=== PATIENT | female | born 1990 | race Two or more races ===

== ENCOUNTER 2020-08-28 01:04 | Emergency (ER) | payer OTHER, SELFPAY ==
--- NOTE | ~2020-08-28 | XR_ITS ---
EXAMINATION: CHEST 2 VIEWS CLINICAL INFORMATION: Palpitations. COMPARISON: 01/18/2018. TECHNIQUE: PA and lateral views of the chest were obtained. FINDINGS: The cardiac silhouette is not enlarged. The mediastinal and hilar contours are unremarkable. There are neither pleural effusions nor pneumothoraces. There are no consolidations. The osseous structures are stable. XR/XR chest 2V IMPRESSION: No evidence for acute disease.
--- NOTE | ~2020-08-28 | CT_ITS ---
EXAMINATION: CT PULMONARY EMBOLISM STUDY CLINICAL INFORMATION: Chest pain, dyspnea, elevated d-dimer. COMPARISON: Same day chest radiographs. TECHNIQUE: Contiguous helical images of the chest were obtained following the administration of IV contrast. Multiplanar reconstructions were performed. MIPS were obtained and reviewed. DLP: 563 mGy-cm. CONTRAST: 85 mL of Omnipaque 350 were administered without incident. FINDINGS: The heart is of normal size. There is no pericardial effusion. The great vessels are unremarkable. Specifically, there is no pulmonary arterial filling defect. There is no CT evidence for pulmonary embolism. There are no chest wall masses. Review of lung windows demonstrates that there are neither pleural effusions nor pneumothoraces. There are no consolidations. There are no pulmonary parenchymal nodules. Limited evaluation of the upper abdomen demonstrates that the liver is of normal size and attenuation without focal lesions. Normal adrenal glands are identified. CT/CT angio chest PE protocol IMPRESSION: No CT evidence for pulmonary embolism. Automated exposure control (Care Dose) Adjustment of the mA and/or kv according to patient size (this includes techniques or standardized protocols for targeted exams where dose is matched to indication / reason for exam; i.e. extremities or head).
[2020-08-28 01:10] VITALS: BP 144/76; PULSE 106; RESP 22; TEMP 37.1; O2SAT 99; BMI 38.9
--- NOTE | 2020-08-28 01:13 | ECG_ITS ---
Test Reason : PALPITATIONS Blood Pressure : / mmHG Vent. Rate : 100 BPM Atrial Rate : 100 BPM P-R Int : 142 ms QRS Dur : 098 ms QT Int : 340 ms P-R-T Axes : 047 027 037 degrees QTc Int : 438 ms Normal sinus rhythm Nonspecific ST and T wave abnormality Abnormal ECG When compared with ECG of 18-JAN-2018 13:24, No significant change was found Referred By: Crystal Cisneros Electronically Signed By:DENA LOAIZA
--- NOTE | 2020-08-28 01:14 | ED.ARRPALP ---
HPI - Arrhythmia/Palpitations General Chief Complaint: General Medical Stated Complaint: HEART PALPITATIONS Time Seen by Provider: 08/28/20 01:06 Source: patient Mode of arrival: ambulatory Limitations: no limitations History of Present Illness HPI narrative: 30 yo female no sig PMH did suffer from HTN in but resolved and not on medications - woke up [employer]NER and felt her HR racing no associated CP/SOB felt L arm was heavy - she denies any drug abuse, no recent issues, does take HerbaLife but has been on it for 2 weeks MD complaint: heart racing Onset (ago): minute(s) (just [employer]) Duration: constant (but improving) Severity: similar to previous episodes Context: occurred during rest Associated symptoms: feeling of impending doom Related Data Home Medications Medication Instructions Recorded Confirmed No Known Home Meds 08/28/20 08/28/20 Allergies Allergy/AdvReac Type Severity Reaction Status Date / Time No Known Allergies Allergy Verified 08/28/20 02:03 [No Known Allergies*] Review of Systems Review of Systems: Constitutional : No Weight loss, No Fever, No Chills, No Fatigue, No Malaise ENT/Mouth : No sore throat, No Rhinorrhea Eyes: No Eye Pain, No Swelling, No Redness Cardiovascular : No Chest Pain, No SOB, No Dyspnea on Exertion, No Orthopnea, No Edema, pos Palpitations Respiratory : No Cough, No Sputum, No Wheezing Gastrointestinal : No Nausea, No Vomiting, No Diarrhea, No Constipation, No abdominal Pain, No Hematochezia, No Melena Genitourinary : No Dysuria, No Urinary Frequency, No Hematuria, Musculoskeletal : No joint pain, No Myalgias, No Joint Swelling Skin : No Skin Lesions, No rash Neuro : No Weakness, No Numbness, No Dizziness, No Headache Psych : pos Anxiety/Panic, No Depression Heme/Lymph: No Bruising, No Bleeding,No Lymphadenopathy Endocrine : No Polyuria, No Polydipsia All other systems reviewed and are negative PMFSH Past Medical History Attestation statement: The following information was validated with the patient. Medical History HTN in , chronic Social History Social History (Updated 08/28/20 @ 01:20 by Crystal Cisneros DO) Alcohol intake: current Alcohol intake frequency: holidays/special occasions only Smoking Status: Never smoker Use of substances other than those prescribed or required for medical reasons: No Advance Directives: No Advance Directives Information Provided: No Physical Exam Vital Signs: Vital Signs: Last Vital Signs Temp 98.8 F 08/28/20 01:10 Pulse 100 08/28/20 01:58 Resp 22 H 08/28/20 01:10 BP 144/76 H 08/28/20 01:10 Pulse Ox 99 08/28/20 01:10 Body Mass Index 38.9 Appearance: Alert. Oriented X3. No acute distress. Anxious Eyes: Pupils equal, round and reactive to light. ENT: Pharynx normal. Neck: Normal inspection. Neck supple. CVS: Normal heart rate and rhythm. Pulses normal. Respiratory: No respiratory distress. Breath sounds normal. Abdomen: Soft and nontender. Skin: Skin warm and dry. Normal skin color. Normal skin turgor. Extremities: No lower extremity edema. No calf ttp Neuro: Oriented X 3. No motor deficit. No sensory deficit. Course Course Course Narrative: ddimer over upper limits of normal - CTA: PE ordered patient refusing CTA at this time does not want contrast has no CP/SOB explained risks she declines. negative workup stable for DC MDM - Arrhythmia/Palpitations MDM Narrative Medical decision making narrative: 30 yo female with hx of gestational HTN here with palpitations no CP/SOB at this time very anxious will need labs, EKG, ddimer/troponin, IV ativan for anxiety, takes herbalife but has been on it for two weeks, has had these episodes in the past but usually resolves with deep breathing, dispo per results and findings - doubt ACS/PE Lab Data Result diagrams: 08/28/20 01:27 08/28/20 01:27 Labs: Lab Results 08/28/20 08/28/20 08/28/20 Range/Units 01:27 01:27 01:27 WBC 10.7 (4.8-10.8) X10*3/uL RBC 4.96 (4.20-5.50) X10*6/uL Hgb 11.5 L (12.0-16.0) g/dl Hct 36.3 L (37-47) % MCV 73.2 L (80-98) fL MCH 23.2 L (27.0-33.0) pg MCHC 31.7 (31.0-35.0) g/dl RDW 16.2 H (11.0-16.0) % Plt Count 323 (160-400) X10*3/uL MPV 9.4 (9.4-12.3) fL Immature Gran % (Auto) 0.2 (0.0-0.4) % Neut % (Auto) 69.1 (45-73) % Lymph % (Auto) 23.4 (20-40) % [place] % (Auto) 5.1 (2-11) % Eos % (Auto) 1.9 (0-4) % Baso % (Auto) 0.3 (0-2) % Lymph # (Auto) 2.5 (1.2-4.9) X10*3/uL [place] # (Auto) 0.5 (0.1-1.2) X10*3/uL Eos # (Auto) 0.2 (0.0-0.4) X10*3/uL Baso # (Auto) 0.0 (0.0-0.2) X10*3/uL Abs Immat Gran (auto) 0.02 (0.00-0.03) X10*3/uL Absolute Neuts (auto) 7.4 (2.0-8.3) X10*3/uL Absolute Nucleated RBC 0.000 (0.0-0.012) X10*3/uL Nucleated RBC % (auto) 0.0 (0.0-0.2) /100WBC D-Dimer 288 NG/ML Sodium 136 (135-145) mmol/L Potassium 3.2 L (3.3-5.1) mmol/L Chloride 104 (96-108) mmol/L Carbon Dioxide 24 (22-29) mmol/L Anion Gap 11 L (12-20) BUN 11 (9-16) mg/dL Creatinine 0.62 (0.5-1.4) mg/dL Estim Creat Clear Calc 186.8 Estimated GFR > 60 Random Glucose 123 H (60-115) mg/dL Calcium 8.6 (8.4-10.2) mg/dL Magnesium 1.8 (1.6-2.6) mg/dL Total Bilirubin 0.4 (0.0-1.0) mg/dL Direct Bilirubin 0.2 (0.0-0.5) mg/dL AST 14 (5-31) U/L ALT 33 H (0-31) U/L Alkaline Phosphatase 86 (39-117) U/L Troponin I High Sens (<3.5-17.0) ng/L B-Natriuretic Peptide (<100) pg/mL Total Protein 7.2 (6.5-8.0) g/dL Albumin 4.1 (3.5-5.0) g/dL TSH 3.79 (0.32-4.0) uIU/mL Beta HCG, Quant < 2 mIU/mL 08/28/20 Range/Units 01:27 WBC (4.8-10.8) X10*3/uL RBC (4.20-5.50) X10*6/uL Hgb (12.0-16.0) g/dl Hct (37-47) % MCV (80-98) fL MCH (27.0-33.0) pg MCHC (31.0-35.0) g/dl RDW (11.0-16.0) % Plt Count (160-400) X10*3/uL MPV (9.4-12.3) fL Immature Gran % (Auto) (0.0-0.4) % Neut % (Auto) (45-73) % Lymph % (Auto) (20-40) % [place] % (Auto) (2-11) % Eos % (Auto) (0-4) % Baso % (Auto) (0-2) % Lymph # (Auto) (1.2-4.9) X10*3/uL [place] # (Auto) (0.1-1.2) X10*3/uL Eos # (Auto) (0.0-0.4) X10*3/uL Baso # (Auto) (0.0-0.2) X10*3/uL Abs Immat Gran (auto) (0.00-0.03) X10*3/uL Absolute Neuts (auto) (2.0-8.3) X10*3/uL Absolute Nucleated RBC (0.0-0.012) X10*3/uL Nucleated RBC % (auto) (0.0-0.2) /100WBC D-Dimer NG/ML Sodium (135-145) mmol/L Potassium (3.3-5.1) mmol/L Chloride (96-108) mmol/L Carbon Dioxide (22-29) mmol/L Anion Gap (12-20) BUN (9-16) mg/dL Creatinine (0.5-1.4) mg/dL Estim Creat Clear Calc Estimated GFR Random Glucose (60-115) mg/dL Calcium (8.4-10.2) mg/dL Magnesium (1.6-2.6) mg/dL Total Bilirubin (0.0-1.0) mg/dL Direct Bilirubin (0.0-0.5) mg/dL AST (5-31) U/L ALT (0-31) U/L Alkaline Phosphatase (39-117) U/L Troponin I High Sens < 3.5 (<3.5-17.0) ng/L B-Natriuretic Peptide < 10 (<100) pg/mL Total Protein (6.5-8.0) g/dL Albumin (3.5-5.0) g/dL TSH (0.32-4.0) uIU/mL Beta HCG, Quant mIU/mL ECG Data Attestation: I personally reviewed and interpreted this ECG as follows: ECG interpretation date: 08/28/20 ECG interpretation time: 01:55 Interpretation: Rate: 100 Rhythm: NSR [place]: normal Normal P waves. Normal EBER. Normal QRS complex. ST T wave : nonspecific, no RADAMES qTC: normal prior studies: no acute ischemia The study has been interpreted contemporaneously by me. EKG #2 Rate: 99 Rhythm: NSR [place]: normal Normal P waves. Normal EBER. Normal QRS complex. ST T wave : normal, no RADAMES qTC: normal prior studies: no acute ischemia The study has been interpreted contemporaneously by me. . Discharge Plan Discharge Clinical Impression: Heart palpitations, Acute hypokalemia Patient Disposition: Home, Self-Care Instructions: Heart Palpitations (ED), Hypokalemia (ED) Additional Instructions: return to ED for any worsening symptoms or concerns Prescriptions: No Action No Known Home Meds RF: 0 Stand Alone Forms: Work/School Release Print Language: Frisian
[2020-08-28 01:35] LABS: MANUAL DIFF FLAG NO
[2020-08-28 01:38] LABS: Basophils Percent Auto 0.3 % (0-2); Eosinophils Absolute Auto 0.2 X10*3/uL (0.0-0.4); Eosinophils Percent Auto 1.9 % (0-4); Hematocrit 36.3 % (37-47); Hemoglobin 11.5 g/dl (12.0-16.0); Imm Gran Abs Auto 0.02 X10*3/uL (0.00-0.03); Imm Gran Pct Auto 0.2 % (0.0-0.4); Lymphocytes Absolute Auto 2.5 X10*3/uL (1.2-4.9); Lymphocytes Percent Auto 23.4 % (20-40); Mean Corpuscular HGB Conc 31.7 g/dl (31.0-35.0); Mean Corpuscular Hemoglobin 23.2 pg (27.0-33.0); Mean Corpuscular Volume 73.2 fL (80-98); Mean Platelet Volume 9.4 fL (9.4-12.3); Monocytes Absolute Auto 0.5 X10*3/uL (0.1-1.2); Monocytes Percent Auto 5.1 % (2-11); Neutrophils Absolute Auto 7.4 X10*3/uL (2.0-8.3); Neutrophils Percent Auto 69.1 % (45-73); Platelet Count 323 X10*3/uL (160-400); Red Blood Count 4.96 X10*6/uL (4.20-5.50); Red Cell Distribution Width 16.2 % (11.0-16.0); White Blood Count 10.7 X10*3/uL (4.8-10.8)
[2020-08-28] MEDS: LORazepam 2 MG/ML VIAL 0.5 MG IVPUSH (01:39)
[2020-08-28 01:58] VITALS: PULSE 100
[2020-08-28 02:03] LABS: Alanine Aminotransferase 33 U/L (0-31); Albumin Level 4.1 g/dL (3.5-5.0); Alkaline Phosphatase 86 U/L (39-117); Anion Gap 11 (12-20); Aspartate Amino Transferase 14 U/L (5-31); Bilirubin Direct 0.2 mg/dL (0.0-0.5); Bilirubin Total 0.4 mg/dL (0.0-1.0); Blood Urea Nitrogen 11 mg/dL (9-16); Calcium 8.6 mg/dL (8.4-10.2); Carbon Dioxide 24 mmol/L (22-29); Chloride 104 mmol/L (96-108); Creatinine Clr Calc Pharmacy 186.8; Estimated Glomerular Filt Rate > 60; Glucose Random 123 mg/dL (60-115); Magnesium 1.8 mg/dL (1.6-2.6); Potassium 3.2 mmol/L (3.3-5.1); Sodium 136 mmol/L (135-145); Total Protein 7.2 g/dL (6.5-8.0)
[2020-08-28 02:09] LABS: B Type Natriuretic Peptide < 10 pg/mL (<100); Troponin-I High Sensitivity < 3.5 ng/L (<3.5-17.0)
[2020-08-28 02:10] LABS: D Dimer 288 NG/ML
[2020-08-28 02:24] LABS: Thyroid Stimulating Hormone 3.79 uIU/mL (0.32-4.0)
--- NOTE | 2020-08-28 02:26 | PC.NURSE ---
PATIENT AWAY FOR CT SCAN TO RULE OUT PE. PT AMBULATES WITH STEADY GAIT. WILL MEDICATE WITH PO POTASSIUM UPON RETURN TO ED BED 6. PT REPORTS THAT ATIVAN IS EFFECTIVE, AND IS IN NORMAL SINUS RHYTHM ON THE MONITOR.
--- NOTE | 2020-08-28 02:42 | ECG_ITS ---
Test Reason : REPEAT EKG Blood Pressure : / mmHG Vent. Rate : 099 BPM Atrial Rate : 099 BPM P-R Int : 136 ms QRS Dur : 100 ms QT Int : 342 ms P-R-T Axes : 039 027 025 degrees QTc Int : 438 ms Normal sinus rhythm Normal ECG When compared with ECG of 28-AUG-2020 01:51, No significant changes seen Referred By: Crystal Cisneros Electronically Signed By:DENA LOAIZA
[2020-08-28 03:00] LABS: HCG Quantitative < 2 mIU/mL
--- NOTE | 2020-08-28 03:06 | PC.NURSE ---
PT INITIALLY REFUSED CTA BEING OBTAINED. EXPLAINED REASON FOR CTA OF CHEST, AND IMPORTANCE, WELL THE PROCESS OF OBTAINING CTA ITSELF. PATIENT CONSENTED TO CTA WITH PRESIDENT AND CHIEF COMMERCIAL OFFICER AT BEDSIDE. REPEAT EKG OBTAINED PER 'S ORDERS. PREVIOUS 18G IV ACCESS INFILTRATED, NEW 18G IV ACCESS INSERTED TO RIGHT AC BY THIS RN WHILE IN RADIOLOGY. NEW IV ACCESS PATENT/INTACT/FUNCTIONAL. PT HAD BRIEF MOMENT OF NAUSEA AT THE END OF CTA, BUT OTHERWISE TOLERATED PROCEDURE WELL.
[2020-08-28] MEDS: iohexoL 350 MG/ML 100 ML INFUS..BTL 85 ML IV (03:13)
[2020-08-28] MEDS: Potassium Chloride ER 20 MEQ TAB.ER.PRT 40 MEQ PO (03:14)
[2020-08-28 03:42] VITALS: BP 127/74; PULSE 89; RESP 18; O2SAT 100
== END 2020-08-28 04:00 | disposition home or self-care (01) ==
PROVIDERS: Emergency Provider Emergency Medicine
DX: R00.2 Palpitations (principal); E87.6 Hypokalemia
CPT/HCPCS: 36415; 71046; 71275; 80048; 80076; 83735; 83880; 84443; 84484; 84702; 85025; 85379; 93005; 96374; 99284; J2060; Q9967

== ENCOUNTER 2020-09-16 17:21 | Emergency (ER) | payer OTHER, SELFPAY | END 2020-09-16 18:08 | disposition left against medical advice (07) | PROVIDERS: Emergency Provider Emergency Medicine | DX: R51.9 Headache, unspecified (principal); I10 Essential (primary) hypertension ==

== ENCOUNTER 2020-09-23 14:58 | Emergency (ER) | payer OTHER, SELFPAY ==
[2020-09-23 15:01] VITALS: BP 134/66; PULSE 83; RESP 18; TEMP 36.7; O2SAT 99; BMI 38.9
--- NOTE | 2020-09-23 19:29 | ED.GENADULT ---
HPI - General Adult General Chief complaint: General Medical Stated complaint: rapid heartrate Time Seen by Provider: 09/23/20 19:29 Source: patient Mode of arrival: ambulatory Limitations: no limitations History of Present Illness HPI narrative: Patient history of anxiety been here earlier last month for similar situation with poor sleep and palpitation with anxiety workup was negative today she comes for similar symptoms since yesterday evening patient unable to sleep and wakes up with palpitation and anxiety. Patient has not seen any psychiatrist or therapist. Patient denies any depression significant stress at home patient works 6 days a week Related Data Previous Rx's Medication Instructions Recorded lorazepam [Ativan] 0.5 mg PO BEDTIME PRN #20 tab 09/23/20 Allergies Allergy/AdvReac Type Severity Reaction Status Date / Time No Known Allergies Allergy Verified 08/28/20 02:03 [No Known Allergies*] Review of Systems Review of Systems: Constitutional : No Weight loss, No Fever, No Chills ENT/Mouth : No sore throat, No Rhinorrhea Eyes: No Eye Pain, No Swelling Cardiovascular : No Chest Pain, + palpitations Respiratory : No Cough, No Sputum, no shortness of breath Gastrointestinal : no Nausea, No Vomiting, No Diarrhea, No abdominal Pain, no black stools Genitourinary : No Dysuria, No Urinary Frequency Musculoskeletal : No joint pain, No Myalgias, No Joint Swelling Skin : No Skin Lesions, No rash Neuro : No Weakness, No Numbness, No Dizziness, No Headache Psych : No Anxiety/Panic, No Depression Heme/Lymph: No Bruising, No Lymphadenopathy Endocrine : No Polyuria, No Polydipsia All other systems reviewed and are negative PMFSH Past Medical History Medical History HTN in , chronic Social History Social History Alcohol intake: current Alcohol intake frequency: holidays/special occasions only Smoking Status: Never smoker Advance Directives: No Advance Directives Information Provided: Yes Physical Exam Vital Signs: Vital Signs: Last Vital Signs Temp 98.1 F 09/23/20 15:01 Pulse 83 09/23/20 15:01 Resp 18 09/23/20 15:01 BP 134/66 09/23/20 15:01 Pulse Ox 99 09/23/20 15:01 Body Mass Index 38.9 Appearance: Alert. Oriented X3. No acute distress. Anxious Eyes: Pupils equal, round and reactive to light. ENT: Pharynx normal. Neck: Normal inspection. Neck supple. CVS: Normal heart rate and rhythm. Pulses normal. Respiratory: No respiratory distress. Breath sounds normal. Abdomen: Soft and nontender. Bowel sounds are present, no mass palpable, no CVA tenderness Skin: Skin warm and dry. Normal skin color. Normal skin turgor. Extremities: No lower extremity edema. Neuro: Oriented X 3. No motor deficit. No sensory deficit. Medical Decision Making MDM Narrative Medical decision making narrative: Patient with symptoms of anxiety heart rate in 70s saturating 100% clinically patient seems anxious. Will discharge patient home on Ativan and advised to follow with therapist and is Discharge Plan Discharge Clinical Impression: Anxiety Patient Disposition: Home, Self-Care Instructions: Anxiety (ED) Additional Instructions: Relax at home. Take Ativan 0.5 mg every night as needed for severe anxiety. Follow-up with your PCP Prescriptions: New lorazepam [Ativan] 0.5 mg tablet 0.5 mg PO BEDTIME PRN (Reason: anxiety) Qty: 20 RF: 0 Stand Alone Forms: Work/School Release
[2020-09-23] MEDS: LORazepam 0.5 MG TABLET PO (20:00)
== END 2020-09-23 20:04 | disposition home or self-care (01) ==
PROVIDERS: Emergency Provider Internal Medicine
DX: F41.9 Anxiety disorder, unspecified (principal)
CPT/HCPCS: 99283

== ENCOUNTER 2020-10-08 16:15 | Outpatient (REF) | payer OTHER, SELFPAY ==
[2020-10-08 16:43] LABS: MANUAL DIFF FLAG NO
[2020-10-08 16:53] LABS: Basophils Percent Auto 0.3 % (0-2); Eosinophils Absolute Auto 0.1 X10*3/uL (0.0-0.4); Eosinophils Percent Auto 1.3 % (0-4); Hematocrit 38.8 % (37-47); Hemoglobin 11.9 g/dl (12.0-16.0); Imm Gran Abs Auto 0.03 X10*3/uL (0.00-0.03); Imm Gran Pct Auto 0.3 % (0.0-0.4); Lymphocytes Absolute Auto 2.1 X10*3/uL (1.2-4.9); Mean Corpuscular HGB Conc 30.7 g/dl (31.0-35.0); Mean Corpuscular Hemoglobin 22.9 pg (27.0-33.0); Mean Corpuscular Volume 74.8 fL (80-98); Mean Platelet Volume 9.4 fL (9.4-12.3); Monocytes Absolute Auto 0.5 X10*3/uL (0.1-1.2); Monocytes Percent Auto 4.9 % (2-11); Neutrophils Absolute Auto 7.9 X10*3/uL (2.0-8.3); Neutrophils Percent Auto 73.2 % (45-73); Platelet Count 342 X10*3/uL (160-400); Red Blood Count 5.19 X10*6/uL (4.20-5.50); Red Cell Distribution Width 15.7 % (11.0-16.0); White Blood Count 10.7 X10*3/uL (4.8-10.8)
[2020-10-08 17:30] LABS: Alanine Aminotransferase 16 U/L (0-31); Albumin Level 4.5 g/dL (3.5-5.0); Alkaline Phosphatase 93 U/L (39-117); Anion Gap 15 (12-20); Aspartate Amino Transferase 15 U/L (5-31); Bilirubin Total 0.7 mg/dL (0.0-1.0); Blood Urea Nitrogen 14 mg/dL (9-16); Calcium 9.4 mg/dL (8.4-10.2); Carbon Dioxide 23 mmol/L (22-29); Chloride 104 mmol/L (96-108); Estimated Glomerular Filt Rate > 60; Glucose Random 79 mg/dL (60-115); Iron 21 mcg/dL (30-160); Percent Iron Saturation 6 % (15-50); Potassium 4.3 mmol/L (3.3-5.1); Sodium 138 mmol/L (135-145); Total Iron Binding Capacity 326 mcg/dL (228-428); Total Protein 7.9 g/dL (6.5-8.0); Unsaturated Iron Binding 305 ug/dL
[2020-10-08 17:53] LABS: Thyroid Stimulating Hormone 0.79 uIU/mL (0.32-4.0)
[2020-10-09 08:11] LABS: Estimated Average Glucose 97 mg/dL
== END 2020-10-08 16:16 | disposition home or self-care (01) ==
LOC: HO.LAB 16:15
PROVIDERS: PCP Internal Medicine; Visit Provider Internal Medicine
DX: I27.20 Pulmonary hypertension, unspecified (principal); R73.03 Prediabetes
CPT/HCPCS: 36415; 80053; 83036; 83540; 84439; 84443; 85025

== ENCOUNTER 2024-03-10 20:33 | Emergency (ER) | payer OTHER, SELFPAY ==
--- NOTE | 2024-03-10 | ECG_ITS ---
Test Reason : DIZZINESS Blood Pressure : / mmHG Vent. Rate : 097 BPM Atrial Rate : 097 BPM P-R Int : 150 ms QRS Dur : 096 ms QT Int : 344 ms P-R-T Axes : 032 023 015 degrees QTc Int : 436 ms Normal sinus rhythm Normal ECG When compared with ECG of 28-AUG-2020 02:42, No significant change was found Referred By: Generic ED Physician Electronically Signed By:SMITA HERNANDEZ
[2024-03-10 20:49] VITALS: BP 128/75; BMI 45.7
[2024-03-10 20:53] VITALS: BP 123/63; BP 126/66; PULSE 90; PULSE 96
[2024-03-10 20:54] VITALS: BP 128/74; PULSE 100
[2024-03-10 20:55] VITALS: BP 123/63; PULSE 96; RESP 18; TEMP 36.9; O2SAT 100
[2024-03-10 21:25] LABS: MANUAL DIFF FLAG NO
[2024-03-10 21:30] LABS: Basophils Percent Auto 0.3 % (0-2); Eosinophils Absolute Auto 0.1 X10*3/uL (0.0-0.4); Eosinophils Percent Auto 1.4 % (0-4); Hemoglobin 12.3 g/dl (12.0-16.0); Imm Gran Abs Auto 0.02 X10*3/uL (0.00-0.03); Imm Gran Pct Auto 0.2 % (0.0-0.4); Lymphocytes Absolute Auto 1.7 X10*3/uL (1.2-4.9); Mean Corpuscular HGB Conc 32.4 g/dl (31.0-35.0); Mean Corpuscular Hemoglobin 25.3 pg (27.0-33.0); Mean Platelet Volume 9.1 fL (9.4-12.3); Monocytes Absolute Auto 0.6 X10*3/uL (0.1-1.2); Monocytes Percent Auto 5.8 % (2-11); Neutrophils Absolute Auto 7.4 x10*3/uL (2.0-8.3); Neutrophils Percent Auto 75.3 % (45-73); Platelet Count 311 X10*3/uL (160-400); Red Blood Count 4.87 X10*6/uL (4.20-5.50); Red Cell Distribution Width 14.9 % (11.0-16.0); White Blood Count 9.9 X10*3/uL (4.8-10.8)
--- NOTE | 2024-03-10 21:41 | ED_ITS ---
HPI - Dizziness General Chief Complaint: Dizziness Stated Complaint: dizziness intermittent x 2 days, headache Time Seen by Provider: 03/10/24 21:41 Source: patient Mode of arrival: EMS Limitations: no limitations History of Present Illness ED Provider: isabela CHAPPELL Narrative: Patient is 34 years old obese with history of migraine headache off and on been working hard all day today moving his her stuff around 18:00 noticed lightheaded and dizzy sat down got better history of same in the past also patient complaining of headache no fever no chills no upper respiratory symptoms Related Data Previous Rx's ?Medication ?Instructions ?Recorded lorazepam 0.5 mg tablet (Ativan) 0.5 mg PO BEDTIME PRN anxiety #20 09/23/20 tabs Allergies Allergy/AdvReac Type Severity Reaction Status Date / Time No Known Allergies Allergy Verified 03/10/24 20:53 [No Known Allergies*] Review of Systems 2 Review of Systems: Yes all other systems are reviewed and are negative PMFSH Past Medical History Medical History HTN in , chronic Social History Social History Alcohol intake: current Alcohol intake frequency: holidays/special occasions only Smoked in Last 30 Days: No Advance Directives: No Advance Directives Information Provided: No Do you have a plan to hurt others: No Plan Physical Exam 2 Vital Signs: Vital Signs: Last Vital Signs Temp 98.4 F 03/10/24 20:55 Pulse 96 03/10/24 20:55 Resp 18 03/10/24 20:55 BP 123/63 03/10/24 20:55 Pulse Ox 100 03/10/24 20:55 O2 Del Method Room Air 03/10/24 20:55 BMI result Body Mass Index 45.7 Appearance: Alert. Oriented X3. No acute distress. Eyes: PERRLA, No Nystagmus ENT: Pharynx normal. Oral Mucosa moist no temporal artery tenderness Neck: Normal inspection. Neck supple. CVS: Normal heart rate and rhythm. Pulses normal. Respiratory: No respiratory distress. Equal air entry bilateral, no wheezing/rales/rhonchi Abdomen: Soft and nontender. Bowel sounds are present, no mass palpable, no CVA tenderness Skin: Skin warm and dry. Normal skin color. Normal skin turgor. Extremities: No lower extremity edema. No calf tenderness Neuro: Oriented X 3. No motor deficit. No sensory deficit.No cerebellar signs , cranial nerves II-XII intact Medications Administered Discontinued Medications Generic Name Dose Route Start Last Admin Trade Name Alcon PRN Reason Stop Dose Admin Acetaminophen/Butalbital/Caffeine 1 tab 03/10/24 21:54 03/10/24 22:10 Butalb/Acetamin/Caff 50/325/40 Tablet PO 03/10/24 21:55 1 tab ONCE ONE Administration Al Hydroxide/Mg Hydroxide 30 ml 03/10/24 21:55 03/10/24 22:10 Magnesium Hydrox/Alum Hydrox 30 Ml Oral.Susp PO 03/10/24 21:56 30 ml ONCE ONE Administration Omeprazole 40 mg 03/10/24 21:55 03/10/24 22:10 Omeprazole 40 Mg Capsule. PO 03/10/24 21:56 40 mg ONCE ONE Administration Medical Decision Making Medical Decision Making [facility] Narrative: Patient likely with vasovagal near-syncope orthostatics normal the cells workup is also normal will discharge patient advised to drink plenty fluids give Fioricet for headaches Differential Diagnosis Differential Diagnoses: The differential diagnosis associated with the presentation includes Migraine headache, vasovagal near-syncope, benign positional vertigo Lab Data [facility] Lab Attestation statement: I reviewed the patient's lab results. 03/10/24 21:21 03/10/24 21:21 Labs: Lab Results 03/10/24 Range/Units 21:21 WBC 9.9 (4.8-10.8) X10*3/uL RBC 4.87 (4.20-5.50) X10*6/uL Hgb 12.3 (12.0-16.0) g/dl Hct 38.0 (37.0-47.0) % MCV 78.0 L (80.0-98.0) fL MCH 25.3 L (27.0-33.0) pg MCHC 32.4 (31.0-35.0) g/dl RDW 14.9 (11.0-16.0) % Plt Count 311 (160-400) X10*3/uL MPV 9.1 L (9.4-12.3) fL Immature Gran % (Auto) 0.2 (0.0-0.4) % Neut % (Auto) 75.3 H (45-73) % Lymph % (Auto) 17.0 L (20-40) % [place] % (Auto) 5.8 (2-11) % Eos % (Auto) 1.4 (0-4) % Baso % (Auto) 0.3 (0-2) % Lymph # (Auto) 1.7 (1.2-4.9) X10*3/uL [place] # (Auto) 0.6 (0.1-1.2) X10*3/uL Eos # (Auto) 0.1 (0.0-0.4) X10*3/uL Baso # (Auto) 0.0 (0.0-0.2) X10*3/uL Abs Immat Gran (auto) 0.02 (0.00-0.03) X10*3/uL Absolute Neuts (auto) 7.4 (2.0-8.3) x10*3/uL Absolute Nucleated RBC 0.000 (0.0-0.012) X10*3/uL Nucleated RBC % (auto) 0.0 (0.0-0.2) /100WBC Sodium 139 (135-145) mmol/L Potassium 3.8 (3.3-5.1) mmol/L Chloride 104 (96-108) mmol/L Carbon Dioxide 29 (22-29) mmol/L Anion Gap 10 L (12-20) BUN 9 (9-16) mg/dL Creatinine 0.70 (0.5-1.4) mg/dL Estim Creat Clear Calc 169.1 Estimated GFR > 60 Random Glucose 139 H (60-115) mg/dL Calcium 9.3 (8.4-10.2) mg/dL Magnesium 1.9 (1.6-2.6) mg/dL Total Bilirubin 0.2 (0.0-1.0) mg/dL AST 13 (5-31) U/L ALT 16 (0-31) U/L Alkaline Phosphatase 93 (39-117) U/L Troponin I High Sens < 2.7 (<3.5-17.0) ng/L Total Protein 7.5 (6.5-8.0) g/dL Albumin 4.0 (3.5-5.0) g/dL Influenza Type A (PCR) NEGATIVE (Negative) Influenza Type B (PCR) NEGATIVE (Negative) RSV RNA Qual (PCR) NEGATIVE (Negative) SARS-CoV-2 RNA (RT-PCR) NEGATIVE (Negative) Independent Interpretation I performed an independent interpretation of an: EKG Interpretation: Normal sinus rhythm heart rate 97 beats per minute normal interval normal axis impression normal EKG Discharge Plan Discharge Clinical Impression: Vasovagal near syncope, Headache, migraine Prescriptions: No Action lorazepam [Ativan] 0.5 mg tablet 0.5 mg PO BEDTIME PRN (Reason: anxiety) Qty: 20 0RF Print Language: Occitan
[2024-03-10 21:43] LABS: Alanine Aminotransferase 16 U/L (0-31); Alkaline Phosphatase 93 U/L (39-117); Anion Gap 10 (12-20); Aspartate Amino Transferase 13 U/L (5-31); Bilirubin Total 0.2 mg/dL (0.0-1.0); Blood Urea Nitrogen 9 mg/dL (9-16); Calcium 9.3 mg/dL (8.4-10.2); Carbon Dioxide 29 mmol/L (22-29); Chloride 104 mmol/L (96-108); Creatinine Clr Calc Pharmacy 169.1; Estimated Glomerular Filt Rate > 60; Glucose Random 139 mg/dL (60-115); Magnesium 1.9 mg/dL (1.6-2.6); Potassium 3.8 mmol/L (3.3-5.1); Sodium 139 mmol/L (135-145); Total Protein 7.5 g/dL (6.5-8.0)
[2024-03-10 21:51] LABS: Troponin-I High Sensitivity < 2.7 ng/L (<3.5-17.0)
[2024-03-10 22:08] LABS: Influenza A PCR NEGATIVE (Negative); Influenza B PCR NEGATIVE (Negative); Resp Syncy Virus RNA Qual PCR NEGATIVE (Negative); SARS COV2 PCR INHOUSE NEGATIVE (Negative)
[2024-03-10] MEDS: Butalb/Acetamin/Caff 50/325/40 TABLET 1 TAB PO (22:10)
[2024-03-10] MEDS: Omeprazole 40 MG CAPSULE.DR PO (22:10)
[2024-03-10] MEDS: Magnesium Hydrox/Alum Hydrox 30 ML ORAL.SUSP PO (22:10)
[2024-03-10 22:42] VITALS: BP 112/57; PULSE 84; RESP 20; TEMP 37.4; O2SAT 98
[2024-03-10 23:10] VITALS: BP 112/57; PULSE 84; RESP 20; TEMP 37.4; O2SAT 98
== END 2024-03-10 23:11 | disposition home or self-care (01) ==
PROVIDERS: Emergency Provider Internal Medicine
DX: R55 Syncope and collapse (principal); G43.909 Migraine, unspecified, not intractable, without status migrainosus; Z03.818 Encounter for observation for suspected exposure to other biological agents ruled out
CPT/HCPCS: 0241U; 36415; 80053; 83735; 84484; 85025; 93005; 99283; 99284

== ENCOUNTER 2024-04-12 08:12 | Outpatient (REF) | payer OTHER, SELFPAY ==
[2024-04-12 08:36] LABS: MANUAL DIFF FLAG NO
[2024-04-12 09:32] LABS: Basophils Percent Auto 0.3 % (0-2); Eosinophils Absolute Auto 0.2 X10*3/uL (0.0-0.4); Eosinophils Percent Auto 1.9 % (0-4); Hemoglobin 12.4 g/dl (12.0-16.0); Imm Gran Abs Auto 0.05 X10*3/uL (0.00-0.03); Imm Gran Pct Auto 0.5 % (0.0-0.4); Lymphocytes Absolute Auto 2.5 X10*3/uL (1.2-4.9); Lymphocytes Percent Auto 23.7 % (20-40); Mean Corpuscular HGB Conc 31.8 g/dl (31.0-35.0); Mean Corpuscular Hemoglobin 24.7 pg (27.0-33.0); Mean Corpuscular Volume 77.5 fL (80.0-98.0); Monocytes Absolute Auto 0.7 X10*3/uL (0.1-1.2); Monocytes Percent Auto 6.3 % (2-11); Neutrophils Percent Auto 67.3 % (45-73); Platelet Count 310 X10*3/uL (160-400); Red Blood Count 5.03 X10*6/uL (4.20-5.50); Red Cell Distribution Width 14.9 % (11.0-16.0); White Blood Count 10.4 X10*3/uL (4.8-10.8)
[2024-04-12 10:02] LABS: Alanine Aminotransferase 25 U/L (0-31); Alkaline Phosphatase 83 U/L (39-117); Anion Gap 11 (12-20); Aspartate Amino Transferase 16 U/L (5-31); Bilirubin Total 0.5 mg/dL (0.0-1.0); Blood Urea Nitrogen 10 mg/dL (9-16); Calcium 9.5 mg/dL (8.4-10.2); Carbon Dioxide 29 mmol/L (22-29); Chloride 103 mmol/L (96-108); Cholesterol 171 mg/dL (<200); Estimated Glomerular Filt Rate > 60; Glucose Random 120 mg/dL (60-115); Sodium 139 mmol/L (135-145); Total Protein 7.7 g/dL (6.5-8.0)
[2024-04-12 10:21] LABS: Free T4 (Free Thyroxine) 1.06 ng/dL (0.71-1.85); Thyroid Stimulating Hormone 1.65 uIU/mL (0.32-4.0)
== END 2024-04-12 08:13 | disposition home or self-care (01) ==
LOC: HO.LAB 08:12
PROVIDERS: PCP Internal Medicine; Visit Provider Internal Medicine
DX: R53.83 Other fatigue (principal); E66.01 Morbid (severe) obesity due to excess calories
CPT/HCPCS: 36415; 80053; 82465; 84439; 84443; 85025

== ENCOUNTER → 2024-05-18 08:58 | Outpatient (REF) | payer OTHER, SELFPAY | LOC: HO.SL 08:58 | PROVIDERS: PCP Internal Medicine; Visit Provider Internal Medicine | DX: Z13.89 Encounter for screening for other disorder (principal) ==

== ENCOUNTER 2024-06-27 10:56 | Outpatient (REF) | payer OTHER, SELFPAY ==
--- OUTSIDE RECORDS SUMMARY | 2024-06-28 21:03 | XMS_ITS | Continuity of Care Document ---
Author Organization [facility] Address [address] [place] [address] Phone Care Team Providers Care Radiographer Cardiac Catheterization Name Role Phone Saumya Irving MD Unavailable [...] Diagnoses Date Provider Providers [facility]ied on [facility] [address], [place], [id number] , [place] tel:[phone] [facility] No Information Kalee Kerns. [address] [place], [place], [id number]. tel:[phone] ESTABLISHED PT- MINIMUM EXAM [facility] n, [address], [place], [id number] , [place] tel:[phone] [facility] requesting plan B (chief complaint) Encounter for emergency contraceptive counseling and prescriptionScre en for STD (sexually transmitted disease) 5 No Information [facility], [address], [place], [id number] , [place] tel:[phone] [facility] No Information 2 [employer]. [address] [place], [place], [id number]. [facility], [address], [place], [id number] , [place] tel:[phone] [facility] routine exam (chief complaint) Regular astigmatismMyopi aRetinitis pigmentosaMyopia Regular astigmatism 2 [facility]. [address] [place], [place], [id number]. tel:[phone] Family History Family Member Type Diagnosis Age At Onset greatgrandmama Problem (finding) Diabetes mellitus Payers Payer name Insurance type Covered green party ID Authoriza tielisa(s) Family PACT [id number] Social History Type Description Quantity Date Captured [...]
== END 2024-06-27 10:57 | disposition home or self-care (01) ==
LOC: HO.LAB 10:56
PROVIDERS: PCP Internal Medicine; Visit Provider Advanced Practice Midwife
DX: Z01.419 Encounter for gynecological examination (general) (routine) without abnormal findings (principal); E66.01 Morbid (severe) obesity due to excess calories; Z68.42 Body mass index [BMI] 45.0-49.9, adult; R73.09 Other abnormal glucose; Z87.59 Personal history of other complications of pregnancy, childbirth and the puerperium; Z97.5 Presence of (intrauterine) contraceptive device
CPT/HCPCS: 99385; 99459

== ENCOUNTER 2024-06-27 10:56 | Outpatient (AMB) | payer OTHER, SELFPAY ==
[2024-06-27 11:08] VITALS: BP 138/78; BMI 49.0
--- NOTE | 2024-06-27 11:08 | MHC.OFFVIS ---
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 She delivered that baby 08/13/2019 at [facility] by she said it was very scary this blood pressure dropped and also her heart rate dropped during the epidural placement as well as her baby's heart rate dropped. She had a Mirena placed during the and has had it since she has not had her periods since the . She was scared about having but she thought it needed to be because it was coming up on the 5 years. She has struggled with her weight for years and she tries every day to eat better and cut out soda in be very active. She works for [employer] so she is physically active job she has a good and she has a good life otherwise and she wants to be healthy for her 4 year old and family. She is afraid of surgery and the drastic effects it has on people's Health but she wants to be healthier. She was wondering about medications for weight loss and mail examiner. [facility] Medical History (Updated 06/27/24 @ 12:17 by Griselda Barrera CNM) Obesity HTN in , chronic Surgical History (Updated 06/27/24 @ 11:25 by Aundrea Leach CMA) S/P bilateral breast reduction S/P Social History Alcohol intake: current Alcohol intake frequency: holidays/special occasions only Female Reproductive History Menstrual Age of Menarche: 13 Duration of menses: 3-5 days control method: progestin IUCD Total pregnancies: 1 Full term: 1 History of abnormal pap smear: No (previous pap ,(per patient )) Physical Exam Vital Signs: Last Vital Signs BP 138/78 06/27/24 11:08 BMI result Body Mass Index 49.0 Const General: healthy appearing, comfortable, no acute distress, well developed and alert Orientation/consciousness: patient oriented x3 Limitations: no limitations HEENT Head: Yes normocephalic Neck Neck: Yes normal visual inspection Chest Chest palpation & inspection: normal inspection of the chest Breast/axilla inspection: normal inspection of the breasts and normal inspection of the axillae Breast/axilla palpation: normal palpation of the breasts and normal palpation of the axillae Resp Effort & Inspection: normal respiratory effort GI Inspection: Yes normal to inspection, No Abdominal wall edema and No distended Palpation (GI): Soft to palpation and nontender Other: Normal external exam the patient has some moles on labia Vagina is pink and moist and healthy appearing very clear healthy appearing mucus cervix is nulliparous pink shiny smooth mobile nontender uterus nontender mobile position difficult palpate secondary to adipose. Good muscle tone no tenderness. Mirena string clearly visible about 2 cm length in cervix. General: Yes bladder normal to palpation External Female Exam: normal external appearance and normal appearance of the urethra Speculum Exam - Vagina: normal appearance of the vagina, normal palpation and normal vaginal discharge Speculum Exam - Cervix: normal appearance of the cervix, normal palpation and nontender Bimanual exam- vagina & uterus: normal bimanual exam, normal palpation, uterine size normal, bladder normal to palpation, consistency normal, normal palpation, uterine mobility normal, uterine shape normal, No Cervical tenderness present, non-tender and no cervical motion tenderness Bimanual Exam- Adnexa, other: normal adnexae, no masses, normal and No adnexal tenderness Neuro General: patient oriented x3 Assessment & Plan Assessment & Plan (1) Well woman exam with routine gynecological exam: Code(s): Z01.419 - Encounter for gynecological examination (general) (routine) without abnormal findings Category: Medical (2) Presence of 52 mg levonorgestrel-releasing intrauterine device (IUD): Comment: Placed 08/13/2019 during at [facility]. Teaching done about 5 -8 yr range of usefulness patient does not getting menses at all at this time Code(s): Z97.5 - Presence of (intrauterine) contraceptive device Category: Social Hx (3) History of severe pre-eclampsia: Code(s): Z87.59 - Personal history of other complications of , childbirth and the puerperium Category: Medical (4) Obesity, morbid, BMI 40.0-49.9: Code(s): E66.01 - Morbid (severe) obesity due to excess calories Category: Medical (5) HTN in , chronic: Code(s): O10.919 - Unspecified pre-existing hypertension complicating , unspecified trimester Category: Medical (6) Elevated glucose level: Comment: 04/11- pt states it was done fasting...has f/u w pcc 07/28/24. Code(s): R73.09 - Other abnormal glucose Category: Medical Plan -----Discussed in this visit the following: healthy balanced diet, regular and consistent exercise, getting recommended health screens, doing the best she can for her particular health concerns, kegel exercises, pap smear screening and followup recommendations, mammography screening and SBE, normal changes in cycles in her life stage--- . Also discussed the initial recommendations to use the Mirena IUD for contraception for up to 5 years. Some recent studies are indicating that it can be used for longer and there are current recommendations saying it can be left for longer period of time when used for contraception, up to 8 years and it can be used for 5 years when it is being used to help control abnormal bleeding. However, many women, whose periods went away for the 1st few years of having the Mirena, have reported that around 4-1/2-5 years into its use, they have noticed return of full menses, and return of ovulatory signs and symptoms midcycle. This varies from women to woman. In addition women who have had it to help control bleeding, have had amenorrhea for very many years and sometimes have opted to leave it in longer if they are still not bleeding, when they are not concerned about contraception. I recommend the she pay attention to how the effects are acting on her own body, and cycles, and always take care to be aware of this. And if she is using it for contraception, and the consequences of conceiving would be great for her, she would be zamorano to pay attention to this, and not depend on it, if she has a return to fertility. And if she desires replacement, she should return for replacement at the appropriate time. ---Discussed with pt, her wt, and BMI, and her goals. Discussed ideal dietary guidelines to assist in weight loss, focusing on vegetables and fruits and lean proteins, and minimizing fats and carbohydrates and eliminating empty calories. Discussed exercise, including regular, sufficient, and consistent cardio based exercise, and weight bearing exercise. Discussed barriers to exercise and healthy eating, and possible ways of establishing newer healthier habits. Discussed supports to help in her efforts, and timing issues. Discussed adequate sleep, and ways to achieve this. Discussed adequate water intake.-- I also reviewed her past labs with her in the system.. She had some elevated blood sugars but 1 was during an emergency room visit for migraine in February, and she had some other labs done March. She says that she is very sure that she did not after midnight before getting those labs done in the blood sugar was elevated at 120. I reviewed with her that if this truly was fasting would put her diabetic range. She has a follow-up visit Dr. Fuller in JulyJuly 28. Also she had expressed interest in seeing a mail examiner away to place in nutrition referral in the system it did review with her dietary changes as well. She is motivated to try and make changes for her health to have more energy to be with her 4-year-old. We can see her if her periods term I recommend she consider replacing the IUD and using protection as a backup until such time. She declines blood work for STIs. Orders: Orders Bacterial Vaginosis Panel Today N89.8 - Other specified noninflammatory disorders of vagina CT NG by PCR Today N89.8 - Other specified noninflammatory disorders of vagina Pap Smear Today Z01.419 - Encounter for gynecological examination (general) (routine) without abnormal findings Referrals Nutrition/Dietitian Referral E66.01 - Morbid (severe) obesity due to excess calories, O10.919 - Unspecified pre-existing hypertension complicating , unspecified trimester, Z01.419 - Encounter for gynecological examination (general) (routine) without abnormal findings, Z87.59 - Personal history of other complications of , childbirth and the puerperium, Z97.5 - Presence of (intrauterine) contraceptive device Medications: Discontinued lorazepam (Ativan) Discontinued Reason: Patient Completed Course 0.5 mg PO BEDTIME PRN 20 tabs 0RF anxiety hxocfhoqud-ibxkgdewxsnyo-hwpq 50-325-40 mg Discontinued Reason: Patient Completed Course 1 tab PO Q6H PRN 20 tabs 0RF haeadace sucralfate Discontinued Reason: Patient Completed Course 1 g PO TID 90 tabs 2RF Coding Level of Care Code New Pt Prev Care 18-39yr([id number] Diagnoses Well woman exam with routine gynecological exam Z01.419 Presence of 52 mg levonorgestrel-releasing intrauterine device (IUD) Z97.5 History of severe pre-eclampsia Z87.59 Obesity, morbid, BMI 40.0-49.9 E66.01 HTN in , chronic O10.919 Elevated glucose level R73.09
--- OUTSIDE RECORDS SUMMARY | 2024-06-28 20:31 | XMS_ITS | Continuity of Care Document ---
Author Organization [facility] Address [address] [place] [address] Phone Care Team Providers Care Forest Fire Fighter Name Role Phone Saumya Irving MD Unavailable [...] Diagnoses Date Provider Providers [facility]ied on [facility] [address], [place], [id number] , [place] tel:[phone] [facility] No Information Kalee Kerns. [address] [place], [place], [id number]. tel:[phone] ESTABLISHED PT- MINIMUM EXAM [facility] n, [address], [place], [id number] , [place] tel:[phone] [facility] requesting plan B (chief complaint) Encounter for emergency contraceptive counseling and prescriptionScre en for STD (sexually transmitted disease) 5 No Information [facility], [address], [place], [id number] , [place] tel:[phone] [facility] No Information 2 [employer]. [address] [place], [place], [id number]. [facility], [address], [place], [id number] , [place] tel:[phone] [facility] routine exam (chief complaint) Regular astigmatismMyopi aRetinitis pigmentosaMyopia Regular astigmatism 2 [facility]. [address] [place], [place], [id number]. tel:[phone] Family History Family Member Type Diagnosis Age At Onset greatgrandmama Problem (finding) Diabetes mellitus Payers Payer name Insurance type Covered green party ID Authoriza tielisa(s) Family PACT [id number] Social History Type Description Quantity Date Captured [...] Encounter for emergency contraceptive counseling and prescription - Return in 1 year Related to Se e impression: general plan General plan -Mixed Astigmatism -Myopia -Retinitis pigmentosa [...] vitreous Related to See impression: general plan Assessments Type Assessment Date No Information Patient Care Teams Name Effective Dates (start - stop) Status Members No Information
== END 2024-06-27 12:31 | disposition home or self-care (01) ==
LOC: HO.HWSM 10:56
PROVIDERS: PCP Internal Medicine; Visit Provider Advanced Practice Midwife
DX: Z01.419 Encounter for gynecological examination (general) (routine) without abnormal findings (principal); Z97.5 Presence of (intrauterine) contraceptive device; Z87.59 Personal history of other complications of pregnancy, childbirth and the puerperium; E66.01 Morbid (severe) obesity due to excess calories; O10.919 Unspecified pre-existing hypertension complicating pregnancy, unspecified trimester; R73.09 Other abnormal glucose
CPT/HCPCS: 99385

== ENCOUNTER 2024-06-27 11:56 | Outpatient (REF) | payer OTHER, SELFPAY ==
[2024-06-28 03:46] LABS: CT PCR NOT DETECTED (Not Detect.); NG PCR NOT DETECTED (Not Detect.)
[2024-06-28 11:22] LABS: HPV 16,18/45 See PAP report
[2024-06-28 11:44] LABS: Bacterial Vaginosis PCR NEGATIVE (Negative); Candida Group PCR NOT DETECTED (Not Detect); Candida glab krusei PCR NOT DETECTED (Not Detect); Trichomonas vaginalis PCR NOT DETECTED (Not Detect)
--- OUTSIDE RECORDS SUMMARY | 2024-06-28 21:03 | XMS_ITS | Continuity of Care Document ---
Author Organization [facility] Address [address] [place] [address] Phone Care Team Providers Care Operations Superintendent Name Role Phone Saumya Irving MD Unavailable [...] Diagnoses Date Provider Providers [facility] [address] [place], [place], [id number] , [place] tel:[phone] [facility] No Information Kalee Kerns. [address], [place], [id number]. tel:[phone] ESTABLISHED PT- MINIMUM EXAM [facility] n, [address] [place], [place], [id number] , [place] tel:[phone] [facility] requesting plan B (chief complaint) Encounter for emergency contraceptive counseling and prescriptionScre en for STD (sexually transmitted disease) 5 No Information [facility], [address] [place], [place], [id number] , [place] tel:[phone] [facility] No Information 2 [employer]. [address] [place], [place], [id number]. [facility], [address] [place], [place], [id number] , [place] tel:[phone] [facility] routine exam (chief complaint) Regular astigmatismMyopi aRetinitis pigmentosaMyopia Regular astigmatism 2 [facility]. [address] [place], [place], [id number]. tel:[phone] Family History Family Member Type Diagnosis Age At Onset greatgrandmama Problem (finding) Diabetes mellitus Payers Payer name Insurance type Covered democrat ID Authoriza tielisa(s) Family PACT [id number] Social History Type Description Quantity Date Captured [...]
== END 2024-06-27 11:57 | disposition home or self-care (01) ==
LOC: HO.LNP 11:56
PROVIDERS: Visit Provider Advanced Practice Midwife
DX: Z01.419 Encounter for gynecological examination (general) (routine) without abnormal findings (principal); N89.8 Other specified noninflammatory disorders of vagina; Z87.42 Personal history of other diseases of the female genital tract
CPT/HCPCS: 0352U; 87491; 87591; 87624; 88175

== ENCOUNTER 2024-08-03 13:31 | Outpatient (REF) | payer OTHER, SELFPAY ==
[2024-08-03 14:19] LABS: Estimated Average Glucose 117 mg/dL; Hemoglobin A1C 126.5404 umol/L; Hemoglobin A1c % 5.7 % (<6.0); Total Hemoglobin (HGBA1C) 3262.5401 umol/L
[2024-08-03 14:33] LABS: Anion Gap 11 (12-20); Blood Urea Nitrogen 7 mg/dL (9-16); Calcium 9.2 mg/dL (8.4-10.2); Carbon Dioxide 24 mmol/L (22-29); Chloride 106 mmol/L (96-108); Estimated Glomerular Filt Rate > 60; Glucose Random 98 mg/dL (60-115); Sodium 137 mmol/L (135-145)
== END 2024-08-03 13:32 | disposition home or self-care (01) ==
LOC: HO.LAB 13:31
PROVIDERS: PCP Internal Medicine; Visit Provider Internal Medicine
DX: E66.01 Morbid (severe) obesity due to excess calories (principal)
CPT/HCPCS: 36415; 80048; 83036

== ENCOUNTER 2025-01-23 09:12 | Outpatient (REF) | payer OTHER, SELFPAY ==
--- OUTSIDE RECORDS SUMMARY | 2015-01-21 07:31 | XMS_ITS | Continuity of Care Document ---
Author Organization [facility] Address [address] [place] [address] Phone Care Team Providers Care Diagnostics Sales Developer Name Role Phone Saumya Irving MD Unavailable Unavailable Allergies, Adverse Reactions, Alerts Substance Reaction Status Criticality No Known Allergies Active No Inform ation Medications Medication Instructions Dosage Effective Dates (start - stop) Status Comments Plan B One-Step 1.5 mg tablet take 1 tablet by oral route once as soon as possible within 72 hours (3 days) after unprotected intercourse 1.5 MG - Active New medicaiton please review with patient. Condoms-Garret Lubricated use as directed - Active Procedures Procedure Date URINE TEST ESTABLISHED PT- MINIMUM EXAM G.C CHLAMYDIA N.GONORRHOEAE, DNA, AMP PROB Dispensing Glasses ESTABLISHED PT- DETAILED EXAM 2 REFRACTION DISPENSING SINGLE VISION Vision svcs frames purchases Advance Directives Directive Yes / No Effective Date File Name No Information Encounters Encounter Description Practice Location Reason(s) For Visit Diagnoses Date Provider Providers Copied on [facility]counter [facility] [address], [place], [id number] , [place] tel:[phone] [facility] No Information Kalee Kerns. [address] [place], [place], [id number]. tel:[phone] ESTABLISHED PT- MINIMUM EXAM [facility], [address], [place], [id number] , [place] tel:[phone] [facility] requesting plan B (chief complaint) Encounter for emergency contraceptive counseling and prescriptionScre en for STD (sexually transmitted disease) 5 No Information [facility], [address], [place], [id number] , [place] tel:[phone] [facility] No Information [facility] [employer]. [address], [place], [id number]. [facility], [address], [place], [id number] , [place] tel:[phone] [facility] routine exam (chief complaint) Regular astigmatismMyopi aRetinitis pigmentosaMyopia Regular astigmatism 2 [facility] [address] [place], [place], [id number]. tel:[phone] Family History Family Member Type Diagnosis Age At Onset greatgrandmama Problem (finding) Diabetes mellitus Payers Payer name Insurance type Covered democrat ID Authoriza tielisa(s) Family PACT [id number] Social History Type Description Quantity Date Captured Comments Alcohol Use Details Unknown Caffeine Use Details Unknown Tobacco Use Status No Information Smoking Status No Information Sex Female Chief Complaint And Reason For Visit No Information Reason For Referral Reason For Referral No Information Plan Of Treatment Date Type Action Status Referral Ordered: Referral: Ophthalmology. Evaluate and treat. Appointment date/timeframe: 1 Month ordered History Of Present Illness Encounter Date Complaint History Of Prese nt Illness requesting plan B Functional Status Date Functional Assessmen t No Information Instructions Date Instruction Additional Infor mation Use contraception ea ch time of intercourse Related to Encounter for emergency contraceptive counseling and prescription Anticipatory guidance Related to Encounter for emergency contraceptive counseling and prescription Increase physical activity. 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 Retinitis pigmentosa OU -pt was referred to [facility] at last visit but did not go to appt -DWP imp of fu care c OMD and possible trial treatment options as RP is a condition where pts may go blind-peripheral vision already affecte -resubmit referral for Retina eval c Retina vitreous Related to See impression: general plan - Return in 1 year Related to Se e impression: general plan Assessments Type Assessment Date No Information Patient Care Teams Name Effective Dates (start - stop) Status Members No Information
[2025-01-23 09:31] LABS: MANUAL DIFF FLAG NO
[2025-01-23 09:39] LABS: Hematocrit 38.1 % (37.0-47.0); Hemoglobin 12.2 g/dl (12.0-16.0); Imm Gran Abs Auto 0.04 X10*3/uL (0.00-0.03); Imm Gran Pct Auto 0.5 % (0.0-0.4); Lymphocytes Absolute Auto 2.1 X10*3/uL (1.2-4.9); Mean Corpuscular HGB Conc 32.0 g/dl (31.0-35.0); Mean Corpuscular Hemoglobin 24.5 pg (27.0-33.0); Mean Corpuscular Volume 76.7 fL (80.0-98.0); NRBC Abs Auto 0.000 X10*3/uL (0.0-0.012); NRBC Pct Auto 0.0 /100WBC (0.0-0.2); Platelet Count 273 X10*3/uL (160-400); Red Blood Count 4.97 X10*6/uL (4.20-5.50); White Blood Count 8.8 X10*3/uL (4.8-10.8)
[2025-01-23 09:48] LABS: Hemoglobin A1C 193.4001 umol/L; Total Hemoglobin (HGBA1C) 3274.3774 umol/L
[2025-01-23 10:39] LABS: Alanine Aminotransferase 31 U/L (0-31); Albumin Level 4.1 g/dL (3.5-5.0); Alkaline Phosphatase 95 U/L (39-117); Anion Gap 11 (12-20); Aspartate Amino Transferase 22 U/L (5-31); Blood Urea Nitrogen 9 mg/dL (9-16); Calcium 8.7 mg/dL (8.4-10.2); Carbon Dioxide 28 mmol/L (22-29); Chloride 103 mmol/L (96-108); Cholesterol 158 mg/dL (<200); Estimated Glomerular Filt Rate > 60; HDL Cholesterol 29 mg/dL (>40); Potassium 4.1 mmol/L (3.3-5.1); Sodium 138 mmol/L (135-145); Total Protein 7.2 g/dL (6.5-8.0); Triglycerides 144 mg/dL (<150)
[2025-01-23 10:43] LABS: Thyroid Stimulating Hormone 1.20 uIU/mL (0.32-4.0)
== END 2025-01-23 09:13 | disposition home or self-care (01) ==
LOC: HO.LAB 09:12
PROVIDERS: PCP Internal Medicine; Visit Provider Internal Medicine
DX: G47.33 Obstructive sleep apnea (adult) (pediatric) (principal); Z00.01 Encounter for general adult medical examination with abnormal findings
CPT/HCPCS: 36415; 80053; 80061; 83036; 84443; 85025